=== PATIENT | female | born 1940 | race Caucasian/White ===

== ENCOUNTER → 2022-11-11 | Outpatient (CLI) | payer MEDICARE, BC ==
[~2022-11-11] MED LIST: CALC500C16 PO; GASTROGRAFIN SOLUTION 30ML As Ordered ONE; ISOVUE-370 76% 100ML VIAL As Ordered ONE; VIT1TABL22 PO; VITA100T59 PO
== END ==
LOC: M RAD 09:37
PROVIDERS: ATTEND Specialist
DX: C50.919 Malignant neoplasm of unspecified site of unspecified female breast (principal); C64.9 Malignant neoplasm of unspecified kidney, except renal pelvis
CPT/HCPCS: 71260; 74177; Q9963; Q9967

== ENCOUNTER → 2023-08-28 | Outpatient (CLI) | payer MEDICARE, BC ==
[~2023-08-28] MED LIST changes: -GASTROGRAFIN SOLUTION 30ML As Ordered ONE; -ISOVUE-370 76% 100ML VIAL As Ordered ONE; +NOXI1TAB PO
== END ==
LOC: M RAD 11:05
PROVIDERS: ATTEND Specialist
DX: C64.9 Malignant neoplasm of unspecified kidney, except renal pelvis (principal)

== ENCOUNTER → 2023-10-17 | Outpatient (CLI) | payer MEDICARE, BC ==
[~2023-10-17] MED LIST changes: +ATOR40TA75 PO; +CBD PO; +CLOP75TA2 PO; +ECOT81TA5 PO; +IRBE300T25 PO; +LEXA1TAB PO
== END ==
LOC: M RAD 10:51
PROVIDERS: ATTEND Internal Medicine Pulmonary Disease
DX: R91.8 Other nonspecific abnormal finding of lung field (principal)

== ENCOUNTER 2023-10-25 07:09 | Day surgery (SDC) | payer MEDICARE, BC ==
[~2023-10-25] VITALS: Ht 160 cm; Wt 63.9 kg
[2023-10-25 07:56] LABS: HEMATOCRIT 38.9 % (36.0-47.0); HEMOGLOBIN 12.9 g/dl (12.0-15.5); MEAN CORPUSCULAR HEMOGLOBIN 30.1 pg (27.0-33.0); MEAN CORPUSCULAR HGB CONC 33.2 g/dl (32.0-36.5); MEAN CORPUSCULAR VOLUME 90.9 fl (80.0-96.0); PLATELET COUNT, AUTOMATED 130 10^3/uL (150-450); RED BLOOD COUNT 4.28 10^6/uL (4.00-5.40); WHITE BLOOD COUNT 5.9 10^3/uL (4.0-10.0)
[2023-10-25] MEDS ORDERED: LIDOCAINE 2% 100MG/5ML SDV (FOR ANES.) As Ordered ONE (07:56)
[2023-10-25] MEDS ORDERED: fentaNYL 100 MCG/2 ML INJECTION As Ordered ONE (07:56)
[2023-10-25] MEDS ORDERED: ONDANSETRON 4MG 2ML VIAL As Ordered ONE (07:56)
[2023-10-25] MEDS ORDERED: SUGAMMADEX SODIUM 500 MG/5 ML VIAL (BRIDION) As Ordered ONE (07:56)
[2023-10-25] MEDS ORDERED: ROCURONIUM BROMIDE 50MG/5ML VIAL As Ordered ONE (07:56)
[2023-10-25] MEDS ORDERED: propofoL 200 MG/20 ML VIAL As Ordered ONE (07:56)
[2023-10-25] MEDS: LR 1,000 ML IV SCH (08:28)
[2023-10-25] MEDS: LIDOCAINE PRES-FREE 2% 10ML AMP INH ONE (08:54)
[2023-10-25] MEDS: ALBUTEROL SULFATE 2.5MG/0.5ML INH NEB SOLN INH ONE (08:54)
[2023-10-25] MEDS ORDERED: ESMOLOL INJ 100MG/10ML VIAL As Ordered ONE (09:24)
[2023-10-25] MEDS: CETACAINE SPRAY 5GM As Ordered ONE (09:27)
[2023-10-25] MEDS: EPINEPHrine 1MG/10ML SYRINGE 1.5IN As Ordered ONE (10:18)
[2023-10-25] MEDS ORDERED: ONDANSETRON 4MG 2ML VIAL IV PRN (10:45)
[2023-10-25] MEDS ORDERED: oxyCODONE 5MG TAB PO PRN (10:45)
[2023-10-25] MEDS ORDERED: LR 1,000 ML IV SCH (10:45)
[2023-10-25] MEDS ORDERED: fentaNYL 100 MCG/2 ML INJECTION IV PRN (10:45)
[2023-10-25 10:52] VITALS: BP 78/170
[2023-10-25] MEDS: LABETALOL 100MG/20ML VIAL IV STA (10:52)
[2023-10-25 11:25] VITALS: BP 134/61; TEMP 97.2; O2SAT 96
== END 2023-10-25 11:54 | disposition home or self-care (01) ==
LOC: M SDC 07:09
PROVIDERS: ATTEND Internal Medicine Pulmonary Disease
DX: R91.8 Other nonspecific abnormal finding of lung field (principal); C64.9 Malignant neoplasm of unspecified kidney, except renal pelvis; Z85.3 Personal history of malignant neoplasm of breast; Z92.3 Personal history of irradiation; F41.9 Anxiety disorder, unspecified; Z98.61 Coronary angioplasty status; Z79.02 Long term (current) use of antithrombotics/antiplatelets; Z79.899 Other long term (current) drug therapy; Z79.82 Long term (current) use of aspirin
CPT/HCPCS: 31623; 31624; 31627; 31628; 31629; 31654; 36415; 71045; 76000; 85027; 88104; 88108; 88173; 88305; 88313; C1601; J0171; J1100; J1805; J1920; J2405; J3010; S2900

== ENCOUNTER → 2023-11-28 | Outpatient (CLI) | payer MEDICARE, BC ==
[~2023-11-28] MED LIST changes: +OMEP40CA4 PO; +vitamin d PO
== END ==
LOC: M ONCR 10:13
PROVIDERS: ATTEND General Practice
DX: R91.8 Other nonspecific abnormal finding of lung field (principal); Z79.82 Long term (current) use of aspirin; Z79.899 Other long term (current) drug therapy; Z85.3 Personal history of malignant neoplasm of breast; Z85.528 Personal history of other malignant neoplasm of kidney

== ENCOUNTER → 2023-12-27 | Outpatient (RCR) | payer MEDICARE, BC | LOC: M ONCR 12-15 14:50 | PROVIDERS: ATTEND General Practice | DX: Z51.0 Encounter for antineoplastic radiation therapy (principal); C34.12 Malignant neoplasm of upper lobe, left bronchus or lung ==

== ENCOUNTER 2024-01-02 12:14 | Outpatient (RCR) | payer MEDICARE, BC | END 2024-01-27 | LOC: M ONCR 12:14 | PROVIDERS: ATTEND General Practice | DX: Z51.0 Encounter for antineoplastic radiation therapy (principal); C34.12 Malignant neoplasm of upper lobe, left bronchus or lung ==

== ENCOUNTER → 2024-04-04 | Outpatient (CLI) | payer MEDICARE, BC ==
[~2024-04-04] MED LIST changes: +B-122500 PO
== END ==
LOC: M ONCR 12:40
PROVIDERS: ATTEND General Practice
DX: R91.8 Other nonspecific abnormal finding of lung field (principal); R05.9 Cough, unspecified; Z85.3 Personal history of malignant neoplasm of breast; Z85.528 Personal history of other malignant neoplasm of kidney; Z92.3 Personal history of irradiation; Z79.82 Long term (current) use of aspirin; Z79.899 Other long term (current) drug therapy

== ENCOUNTER → 2024-10-08 | Outpatient (CLI) | payer MEDICARE, BC | LOC: M RAD 12:28 | PROVIDERS: ATTEND General Practice | DX: C34.90 Malignant neoplasm of unspecified part of unspecified bronchus or lung (principal) ==

== ENCOUNTER → 2024-10-16 | Outpatient (CLI) | payer MEDICARE, BC | LOC: M ONCR 12:59 | PROVIDERS: ATTEND General Practice | DX: R91.8 Other nonspecific abnormal finding of lung field (principal); R05.9 Cough, unspecified; Z79.82 Long term (current) use of aspirin; Z79.899 Other long term (current) drug therapy; Z85.3 Personal history of malignant neoplasm of breast; Z85.528 Personal history of other malignant neoplasm of kidney; Z92.3 Personal history of irradiation ==